=== PATIENT | male | born 1940 | race Caucasian/White ===

== ENCOUNTER 2023-05-10 13:03 | Outpatient (CLI) | payer OTHER ==
[~2023-05-10 13:03] MED LIST: Iopamidol 370 76% 100 ML VIAL ONE; Magnevist 469MG/ML 20 ML VIAL ONE
== END 2023-05-10 13:04 | disposition home or self-care (01) ==
LOC: CSHCT 13:03
PROVIDERS: ATTEND Urology
DX: R31.9 Hematuria, unspecified (principal); D49.4 Neoplasm of unspecified behavior of bladder; N32.89 Other specified disorders of bladder; N40.3 Nodular prostate with lower urinary tract symptoms; R93.89 Abnormal findings on diagnostic imaging of other specified body structures; N20.0 Calculus of kidney; N40.1 Benign prostatic hyperplasia with lower urinary tract symptoms; K76.89 Other specified diseases of liver; K86.89 Other specified diseases of pancreas
CPT/HCPCS: 72197; 74178; 82565; A9579; Q9967